=== PATIENT | male | born 1990 | race Two or more races ===

== ENCOUNTER 2023-10-30 10:32 | Outpatient (AMB) | payer OTHER, SELFPAY ==
--- NOTE | 2023-10-30 10:38 | MHC.PC.OV ---
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 The patient has been without a primary care provider for over 5-10 years. 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 Patient has a significant past medical history for obesity, schizophrenia, Major depression and generalized anxiety disorder. Has had a history of multiple psychiatric admissions for acute mental health crisis. Patient is followed by a psychiatry group at [facility] in [facility] on [facility]. He reports he has been stable on current dose of risperidone. Currently living with family keeps an eye on him. He is disabled and not able to work due to his mental illness. .. Tobacco dependency: He does admit to smoking 6 cigarettes per day and has found it very difficult to stop smoking. Denies my offers to start nicotine replacement. vaccine: needs Tdap. PFSH Family History (Updated 10/30/23 @ 11:01 by Handy Foy PA-C) Mother Hypothyroidism Maternal Grandfather Colon cancer Social History (Updated 10/30/23 @ 11:02 by Handy Foy PA-C) Housing: House Alcohol intake: never Patient Tobacco Use Status: Current everyday Tobacco user Tobacco use type: Cigarette Cigarettes Per Day: 6 e-Cigarette/Vaping Use: Never Used service: No Current occupational status: disabled Cognitive needs: No Hearing needs: No Vision needs: No Questionnaire PHQ-9 Over the last 2 weeks, how often have you been bothered by any of the following problems? 1. Little interest or pleasure in doing things: not at all 2. Feeling down, depressed, or hopeless: not at all 3. Trouble falling or staying asleep, or sleeping too much: not at all 4. Feeling tired or having little energy: not at all 5. Poor appetite or overeating: not at all 6. Feeling bad about yourself - or that you are a failure or have let yourself or your family down: not at all 7. Trouble concentrating on things, such as reading the newspaper or watching television: not at all 8. Moving or speaking so slowly that other people could have noticed. Or the opposite - being so fidgety or restless that you have been moving around a lot more than usual: not at all 9. Thoughts that you would be better off or of hurting yourself in some way: not at all Total score: 0 Depression Screening Interpretation: Negative Depression Screening Done: Yes 85248 - PHQ-9 Billing: Yes Source: Developed by Drs. Robbie Powell, Dawn Guerrero, Isak Qiu and colleagues, with an educational vaughn from [employer] (now [employer]). Thrive Questionnaire Date Thrive assessed: 10/30/23 I am a: Patient What is your living situation today?: I have a steady place to live Within the past 12 months, did the food you bought not last and you didn't have the money to get more?: Never true Within the past 12 months, did you worry whether your food would run out before you got money to buy more?: Never true Do you have trouble paying for medicines?: No Do you have trouble getting transportation to medical appointments?: No Do you have trouble paying your heating and electricity bill?: No Do you have trouble taking care of your child, family member or friend?: No Do you have trouble with day-to-day activities such as bathing, preparing meals, shopping, managing finances, etc.?: No Are you currently unemployed and looking for a job?: No Are you interested in more education?: No Please select the resources that you would like help with: None Currently or been in a relationship where the following occur: No concerns reported THRIVE Score: 0 AUDIT C Alcohol Use Questionnaire (AUDIT-C) 1. How often do you have a drink containing alcohol?: Never 3. How often do you have six or more drinks on one occasion?: Never Total Score: 0 CARIN-7 AMB Questionnaire CARIN-7 Date CARIN - 7 assessed: 10/30/23 Feeling nervous, anxious, or on edge: 0 = Not at all Not being able to stop or control worryin = Not at all Worrying too much about different things: 0 = Not at all Trouble relaxin = Not at all Being so restless that it is hard to sit still: 0 = Not at all Becoming easily annoyed or irritable: 0 = Not at all Feeling afraid as if something awful might happen: 0 = Not at all Total CARIN-7 score (0-4 normal; 5-9 mild; 10-14 moderate; 15-21 severe): 0 Source: Developed by Drs. Robbie Powell, Dawn Guerrero, Isak Qiu and colleagues, with an educational vaughn from [employer] (now [employer]). CARIN-7 Assessment Billing CARIN-7 Assessment Tool: CARIN-7 Assessment 67663 Review of Systems Const Denies headache(s) Eyes Denies loss of vision ENT Denies vertigo, Denies dizziness, Denies headache(s) and Denies sore throat Card Denies chest pain, Denies leg edema and Denies lightheadedness Resp Denies cough, Denies hemoptysis and Denies wheezing GI Denies abdominal pain, Denies melena, Denies constipation, Denies diarrhea and Denies vomiting Denies dysuria, Denies urinary frequency and Denies urinary urgency Musc Denies arthralgias, Denies joint swelling, Denies numbness and Denies tingling Neuro Denies Abnormal speech present, Denies behavioral changes, Denies vertigo, Denies dizziness, Denies headache(s), Denies loss of vision, Denies memory loss, Denies numbness and Denies tingling Psych Denies anxiety, Denies behavioral changes, Denies depression, Denies memory loss and Denies panic attacks Casey/Lymph Denies easy bleeding and Denies easy bruising Aller/Immun Denies wheezing Physical exam (Primary Care) Vital Signs: Last Vital Signs Pulse 82 10/30/23 10:39 BP 108/70 10/30/23 10:39 Pulse Ox 96 10/30/23 10:39 Oxygen Delivery Method Room Air 10/30/23 10:39 BMI result Body Mass Index 49.7 BMI Assessment/Plan discussion: High BMI High, discussed plan: lifestyle, weight reduction, dietary and physical activity Tobacco/Smoking Status: Tobacco use Status Tobacco use date assessed 10/30/23 10/30/23 10:53 Patient Tobacco Use Status Current everyday Tobacco 10/30/23 11:02 Tobacco use type Cigarette 10/30/23 11:02 e-Cigarette/Vaping Use Never Used 10/30/23 11:02 Are you ready to quit: No Tobacco cessation counseling provided: Yes Items discussed: Nicotine replacement Relapse Prevention: discussed the importance of a supportive environment, discussed negative mood or depression after quitting, weight gain after smoking is common and discussed dietary, exercise and/or lifestyle changes Number of minutes spent counselin CPT code: 96977 - 4-10 Minutes PHQ-9: PHQ-9 Score PHQ-9: Total score 0 10/30/23 11:48 Depression Screening Interpretation: Negative Thrive Assessment: Date of Thrive Assessment Date Thrive assessed 10/30/23 10/30/23 10:53 Currently or been in a relationship where the following occur: No concerns reported Const General: healthy appearing, no acute distress, alert and awake Nutritional Appearance: well nourished Orientation/consciousness: oriented to person, oriented to place and oriented to time HENMT Ears: TM's normal bilaterally General nose exam: Normal nasal mucous membranes and turbinates present Eyes Conjunctivae: conjunctivae normal Sclerae: sclerae normal Pupils: Equal, round and reactive pupils present Neck Neck: Yes no lymphadenopathy and Yes no JVD Thyroid: Thyroid normal Carotids: no bruits Resp Effort & Inspection: normal respiratory effort and not tachypneic Auscultation: no crackles, no rales, no rhonchi and no wheezes Cardio Rate: regular rate Rhythm: regular rhythm Heart sounds: no murmurs and normal S1 and S2 GI Palpation (GI): Soft to palpation, nontender, no hepatomegaly and no splenomegaly Auscultation: normal bowel sounds Skin General skin exam: no rashes or lesions noted and dry skin Neuro General: oriented to person, oriented to place and oriented to time Cranial nerves: Yes Equal, round and reactive pupils present Speech: No Abnormal speech present Gait exam (Neuro): Normal gait present Motor exam (neuro): no tremor noted Extrem Right upper extremity: full ROM Left upper extremity: full ROM Right lower extremity: full ROM; no edema Left lower extremity: full ROM; no edema Psych Mental Status: mental status grossly normal Speech and movement: Normal speech and movement present Affect: normal affect Attitude: cooperative Thought process: Normal thought process present Immunizations Boostrix Tdap 2.5 Lf unit-8 mcg-5 Lf/0.5 mL intramuscular syringe Performing Provider: Handy Foy PA-C Performing [facility] [place] Administered by: DA Munoz on 10/30/23 11:49 Dose Route Admin Location Dispensed Lot Number Expiration Date NDC Tipple Tender 0.5 mL IM Left Deltoid 0.5 mL [id number] 11/16/25 [id number] [employer] VIS Given Date VIS Provided VIS Publication Date 10/30/23 Single Vaccine 20 Eligibility Eligibility Date Funding Source Not [facility] Eligible 10/30/23 Private Assessment and Plan Assessment & Plan (1) Schizophrenia: Code(s): F20.9 - Schizophrenia, unspecified Qualifiers: Schizophrenia type: disorganized schizophrenia Qualified Code(s): F20.1 - Disorganized schizophrenia Plan: Patient continues to follow psychiatry has CHD. He continues on risperidone which has been helpful on controlling his mood . (2) Obesity: Code(s): E66.9 - Obesity, unspecified Qualifiers: Body mass index: BMI 45.0-49.9 Obesity classification: adult class 3 (BMI >= 40) Obesity type: due to excess calories Serious obesity comorbidity presence: without serious comorbidity Qualified Code(s): E66.01 - Morbid (severe) obesity due to excess calories; Z68.42 - Body mass index [BMI] 45.0-49.9, adult Plan: Patient does understand his BMI is over 40 will try to work on being more physically active and adapting to better eating habits to reduce his weight. (3) CARIN (generalized anxiety disorder): Code(s): F41.1 - Generalized anxiety disorder (4) Screening for diabetes mellitus (DM): Code(s): Z13.1 - Encounter for screening for diabetes mellitus (5) Tobacco dependence: Code(s): F17.200 - Nicotine dependence, unspecified, uncomplicated Plan: Patient does understand he needs to completely quit smoking. He has found it difficult to do so. Continues to smoke 6 cigarettes per day.. Offered nicotine replacement for patient though he declines at this time. 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 Class 3 severe obesity due to excess calories without serious comorbidity with body mass index (BMI) of 45.0 to 49.9 in adult E66.01; Z68.42 Body mass index: BMI 45.0-49.9 Obesity classification: adult class 3 (BMI >= 40) Obesity type: due to excess calories Serious obesity comorbidity presence: without serious comorbidity CARIN (generalized anxiety disorder) F41.1 Screening for diabetes mellitus (DM) Z13.1 Tobacco dependence F17.200 Additional Codes CARIN-7 Assessment Billing - CARIN-7 Assessment Tool: CARIN-7 Assessment 85894 ([id number]) Vital Signs *Quality* - CPT code: 14446 - 4-10 Minutes ([id number])
[2023-10-30 10:39] VITALS: BP 108/70; PULSE 82; O2SAT 96; BMI 49.7
== END 2023-10-30 11:17 | disposition home or self-care (01) ==
PROVIDERS: Visit Provider Physician Assistant
DX: Z23 Encounter for immunization (principal)
CPT/HCPCS: 90471; 90715; 96127; 99204

== ENCOUNTER 2024-02-29 07:05 | Inpatient (IN) | payer MEDICAID, SELFPAY ==
[2024-02-29] VITALS (10 sets, daily range): BP systolic 103–159; BP diastolic 57–106; PULSE 72–107; RESP 16–20; TEMP 36.1–37.3; O2SAT 93–99; BMI 41.3
--- NOTE | ~2024-02-29 | CT_ITS ---
EXAMINATION: CT ABDOMEN AND PELVIS WITH CONTRAST CLINICAL INFORMATION: Right buttock abscess COMPARISON: None available. TECHNIQUE: Multidetector volumetric images were obtained from the superior aspect of the liver through the pubic symphysis following administration 85 mL of Omnipaque 350 intravenous contrast. Sagittal and coronal reformatted images were obtained on the technologist's workstation. Oral contrast: No This CT examination was performed using dose optimization techniques as appropriate, variously including the following: *Automated exposure control *Adjustment of mA and/or kV according to patient size (this includes techniques or standardized protocols for targeted exams where dose is matched to indication/reason for exam; i.e. extremities or head) *Use of iterative reconstruction technique DLP: 1847 mGy-cm FINDINGS: LUNG BASES: The visualized lung bases are unremarkable. LIVER, GALLBLADDER, AND BILIARY TREE: The liver is normal in size, shape, and attenuation. No focal hepatic lesion or biliary ductal dilatation is present. The gallbladder is unremarkable with no evidence of radiopaque gallstones, gallbladder wall thickening, or obvious pericholecystic inflammatory changes. PANCREAS: Unremarkable. SPLEEN: Unremarkable. ADRENAL GLANDS: Unremarkable. KIDNEYS AND URETERS: The kidneys are normal in size, shape, and attenuation. No hydronephrosis, hydroureter, or calculi seen. No perinephric stranding. BLADDER: Unremarkable. GASTROINTESTINAL TRACT: The small and large bowel are unremarkable. The appendix is unremarkable. ABDOMINAL WALL: No significant hernia is appreciated. LYMPH NODES: Normal. VASCULAR: Unremarkable. PELVIC VISCERA: Unremarkable. OSSEOUS STRUCTURES: Unremarkable. Additional findings: There is skin thickening and inflammatory stranding of the subcutaneous fat of the inferior right buttock. There are few peripheral foci of subcutaneous air without a discrete, peripherally enhancing collection/abscess. CT/CT abdomen pelvis w IV con IMPRESSION: There is skin thickening and inflammatory stranding of the subcutaneous fat compatible with cellulitis of the inferior right buttock with a few peripheral foci of subcutaneous air which may reflect phlegmonous change. No discrete, peripherally enhancing collection/abscess. Fleischner guidelines were followed. Electronically signed by: Cedrick Bruce MD 02/29/2024 01:00 PM [facility] [place]
--- NOTE | 2024-02-29 08:27 | ED.SKABFB ---
HPI - Skin/Abscess/Foreign Bdy General Chief complaint: Skin/Abscess/Foreign Body Stated complaint: Wound on Buttocks Time Seen by Provider: 02/29/24 07:22 Source: patient, family and old records reviewed Mode of arrival: ambulatory Limitations: no limitations History of Present Illness ED Provider: AGUSTIN HPI narrative: 33 yo male with PMH of schizophrenia, anxiety no known DM or MRSA here with 2 days of R buttock abscess - mom thinks it is longer and he didn't tell them. He was very hard to get to come to the hospital. It started to drain this AM significant bloody liquid. He denies n/v/ fevers. This has never happened before. He notes it is very painful. Mom and Dad here with him. He does not give much history. MD complaint: abscess/boil Onset (ago): day(s) (2) Tetanus up to date: yes Location: buttocks Severity: severe Quality: aching Pain Consistency: intermittent Relieving factors: immobilization Exacerbating factors: palpation and movement Context: none Associated symptoms: denies other symptoms Treatments prior to arrival: bandages Related Data Home Medications ?Medication ?Instructions ?Recorded ?Confirmed benztropine 1 mg tablet 1 mg PO BID 10/30/23 10/30/23 risperidone 2 mg tablet 2 mg PO BID 10/30/23 10/30/23 Allergies Allergy/AdvReac Type Severity Reaction Status Date / Time No Known Allergies Allergy Verified 02/29/24 07:20 [No Known Allergies*] Review of Systems Review of Systems: Constitutional : No Fever, No Chills ENT/Mouth : No sore throat, No Rhinorrhea Eyes: No Eye Pain, No Swelling, No Redness Cardiovascular : No Chest Pain, No SOB Respiratory : No Cough, No Sputum Gastrointestinal : No Nausea, No Vomiting, No Diarrhea, No abdominal Pain Genitourinary : No Dysuria, No Hematuria Musculoskeletal : No joint pain, No Myalgias, No Joint Swelling Skin : pos Skin Lesions, positive skin rash Neuro : No Weakness, No Numbness, No Headache Psych : No Anxiety, No Depression Heme/Lymph: No Bruising, No Bleeding,No Lymphadenopathy Endocrine : No Polyuria, No Polydipsia All other systems reviewed and are negative PMFSH Past Medical History Attestation statement: The following information was validated with the patient. Source: old records reviewed Medical History Obesity Schizophrenia CARIN (generalized anxiety disorder) Screening for diabetes mellitus (DM) Tobacco dependence Family History Family History (Updated 10/30/23 @ 11:01 by Handy Foy PA-C) Mother Hypothyroidism Maternal Grandfather Colon cancer Social History Social History Housing: House Alcohol intake: never Patient Tobacco Use Status: Current everyday Tobacco user Tobacco use type: Cigarette Cigarettes Per Day: 6 Smoked in Last 30 Days: Yes e-Cigarette/Vaping Use: Never Used Use of substances other than those prescribed or required for medical reasons: No Advance Directives: No Advance Directives Information Provided: No Do you have a plan to hurt others: No Plan service: No Current occupational status: disabled Cognitive needs: No Hearing needs: No Vision needs: No Physical Exam Vital Signs: Vital Signs: Last Vital Signs Temp 98.6 F 02/29/24 10:37 Pulse 88 02/29/24 10:37 Resp 18 02/29/24 10:37 BP 111/66 02/29/24 10:37 Pulse Ox 98 02/29/24 09:49 O2 Del Method Room Air 02/29/24 09:49 BMI result Body Mass Index 41.3 Appearance: Alert. Oriented X3. No acute distress. Eyes: Pupils equal, round and reactive to light. ENT: Pharynx normal. Neck: Normal inspection. Neck supple. CVS: Normal heart rate and rhythm. Pulses normal. Respiratory: No respiratory distress. Breath sounds normal. Abdomen: Soft and nontender. Buttocks. almost the entirety of the R buttock is a firm hard abscess with yellow pockets noted there is erythema and edema he has marked ttp on the perirectal area R side there is a tract noted with any palpation bloody drainage comes out. Skin: Skin warm and dry. Normal skin color. Normal skin turgor. Extremities: No lower extremity edema. No calf ttp Neuro: Oriented X 3. No motor deficit. No sensory deficit. Course Course Course Narrative: clinically this is absess I am shocked that the CT scan read dose not see collection Medications Administered Discontinued Medications Generic Name Dose Route Start Last Admin Trade Name Freq PRN Reason Stop Dose Admin Piperacillin Sod/Tazobactam 50 mls @ 100 mls/hr 02/29/24 08:23 02/29/24 09:56 Sod 3.375 gm/ Sodium Chloride IV 02/29/24 08:52 100 mls/hr ONCE ONE Administration Lactated Ringer's 1,000 mls @ 999 mls/hr 02/29/24 08:23 02/29/24 09:51 Lr IV 02/29/24 09:23 999 mls/hr .Q1H1M ONE Administration Vancomycin HCl 2,000 mg in 500 mls @ 250 mls/hr 02/29/24 08:30 02/29/24 10:37 Vancomycin/Ns IV 02/29/24 10:29 250 mls/hr ONCE ONE Administration Iohexol 85 ml 02/29/24 10:23 02/29/24 10:23 Iohexol 350 Mg/Ml 100 Ml Infus..Btl IV 02/29/24 10:24 85 ml ONCE ONE Administration Morphine Sulfate 4 mg 02/29/24 08:23 02/29/24 09:53 Morphine Sulfate 4 Mg/Ml Cartridge IVPUSH 02/29/24 08:24 4 mg ONCE ONE Administration Protocol Ondansetron HCl 4 mg 02/29/24 08:23 02/29/24 09:53 Ondansetron Hcl 4 Mg/2 Ml Vial IVPUSH 02/29/24 08:24 4 mg ONCE ONE Administration Medical Decision Making Medical Decision Making MDM Narrative: 33 yo male with PMH of schizophrenia, anxiety no known DM or MRSA here with 2 days of R buttock abscess now with extensive abscess and collection of R buttock and draining bloody fluid - on arrival here he saturated a blue bedside lb. I have ordered labs, cultures, lactic acid - empiric zosyn and vancomycin. CT scan for depth may need surgery to intervene Differential Diagnosis Differential Diagnoses: The differential diagnosis associated with the presentation includes abscess, cellulitis Admission/Observation Consideration of admission/observation: Escalation of care including admission/observation considered admit for IV antibiotics and I+D Consult Healthcare Provider Management of the patient was discussed with: Shredded Filler Cigar Maker Machine (Dr. Rawls will admit) Lab Data [facility] Lab Attestation statement: I reviewed the patient's lab results. 02/29/24 09:03 02/29/24 09:03 Labs: Lab Results 02/29/24 Range/Units 09:03 WBC 14.1 H (4.8-10.8) X10*3/uL RBC 4.37 L (4.60-5.80) X10*6/uL Hgb 12.9 L (14.0-18.0) g/dl Hct 38.5 L (42.0-52.0) % MCV 88.1 (80.0-98.0) fL MCH 29.5 (27.0-33.0) pg MCHC 33.5 (31.0-36.0) g/dl RDW 12.7 (11.0-16.0) % Plt Count 313 (160-400) X10*3/uL MPV 9.8 (9.4-12.4) fL Immature Gran % (Auto) 0.5 H (0.0-0.4) % Neut % (Auto) 65.4 (45-73) % Lymph % (Auto) 21.4 (20-40) % [place] % (Auto) 10.3 (2-11) % Eos % (Auto) 2.2 (0-4) % Baso % (Auto) 0.2 (0-2) % Lymph # (Auto) 3.0 (1.2-4.9) X10*3/uL [place] # (Auto) 1.5 H (0.1-1.2) X10*3/uL Eos # (Auto) 0.3 (0.0-0.4) X10*3/uL Baso # (Auto) 0.0 (0.0-0.2) X10*3/uL Abs Immat Gran (auto) 0.07 H (0.00-0.03) X10*3/uL Absolute Neuts (auto) 9.2 H (2.0-8.3) x10*3/uL Absolute Nucleated RBC 0.000 (0.0-0.012) X10*3/uL Nucleated RBC % (auto) 0.0 (0.0-0.2) /100WBC Sodium 136 (135-145) mmol/L Potassium 3.9 (3.3-5.1) mmol/L Chloride 105 (96-108) mmol/L Carbon Dioxide 21 L (22-29) mmol/L Anion Gap 14 (12-20) BUN 11 (9-16) mg/dL Creatinine 0.76 (0.5-1.4) mg/dL Estim Creat Clear Calc 182.2 Estimated GFR > 60 Random Glucose 103 (60-115) mg/dL Lactic Acid 0.9 (0.5-2.0) mmol/L Calcium 8.6 (8.4-10.2) mg/dL Magnesium 2.2 (1.6-2.6) mg/dL Total Bilirubin 0.6 (0.0-1.0) mg/dL Direct Bilirubin 0.4 (0.0-0.5) mg/dL AST 59 H (5-37) U/L ALT 94 H (0-40) U/L Alkaline Phosphatase 100 (39-117) U/L Total Protein 7.0 (6.5-8.0) g/dL Albumin 3.4 L (3.5-5.0) g/dL Lipase 7 L (8-78) U/L Independent Interpretation I performed an independent interpretation of an: CT Scan (phlegmon) Radiology Impression Discussion of test interpretation with radiology: I have reviewed the radiologist's reading. Independent Historian Clinical information obtained from an independent historian. History obtained from or confirmed by: Parent External Record Review External record reviewed: Outpatient record Critical Care Time Critical Care Time Critical Care Time: Yes Total Critical Care Time: 35 Attestation: medical consult, admission, family discussion, IV morphine with improvement in pain I attest to this time spent taking care of the patient Discharge Plan Discharge Clinical Impression: Cellulitis Qualifiers: Site of cellulitis: buttock Qualified Code(s): L03.317 - Cellulitis of buttock Abscess of skin or subcutaneous tissue Qualifiers: Site of cutaneous abscess: buttock Qualified Code(s): L02.31 - Cutaneous abscess of buttock Patient Disposition: Admitted As Inpatient
[2024-02-29 09:08] LABS: MANUAL DIFF FLAG NO
[2024-02-29 09:10] LABS: Basophils Percent Auto 0.2 % (0-2); Eosinophils Absolute Auto 0.3 X10*3/uL (0.0-0.4); Eosinophils Percent Auto 2.2 % (0-4); Hematocrit 38.5 % (42.0-52.0); Hemoglobin 12.9 g/dl (14.0-18.0); Imm Gran Abs Auto 0.07 X10*3/uL (0.00-0.03); Imm Gran Pct Auto 0.5 % (0.0-0.4); Lymphocytes Percent Auto 21.4 % (20-40); Mean Corpuscular HGB Conc 33.5 g/dl (31.0-36.0); Mean Corpuscular Hemoglobin 29.5 pg (27.0-33.0); Mean Corpuscular Volume 88.1 fL (80.0-98.0); Mean Platelet Volume 9.8 fL (9.4-12.4); Monocytes Absolute Auto 1.5 X10*3/uL (0.1-1.2); Monocytes Percent Auto 10.3 % (2-11); Neutrophils Absolute Auto 9.2 x10*3/uL (2.0-8.3); Neutrophils Percent Auto 65.4 % (45-73); Platelet Count 313 X10*3/uL (160-400); Red Blood Count 4.37 X10*6/uL (4.60-5.80); Red Cell Distribution Width 12.7 % (11.0-16.0); White Blood Count 14.1 X10*3/uL (4.8-10.8)
--- NOTE | 2024-02-29 09:25 | PC.NURSE ---
mult attempts for IV access unsucceful. additional RN to attempt
[2024-02-29 09:28] LABS: Lactic Acid 0.9 mmol/L (0.5-2.0)
[2024-02-29 09:29] LABS: Alanine Aminotransferase 94 U/L (0-40); Albumin Level 3.4 g/dL (3.5-5.0); Alkaline Phosphatase 100 U/L (39-117); Anion Gap 14 (12-20); Aspartate Amino Transferase 59 U/L (5-37); Bilirubin Direct 0.4 mg/dL (0.0-0.5); Bilirubin Total 0.6 mg/dL (0.0-1.0); Blood Urea Nitrogen 11 mg/dL (9-16); Calcium 8.6 mg/dL (8.4-10.2); Carbon Dioxide 21 mmol/L (22-29); Chloride 105 mmol/L (96-108); Creatinine Clr Calc Pharmacy 182.2; Estimated Glomerular Filt Rate > 60; Glucose Random 103 mg/dL (60-115); Lipase 7 U/L (8-78); Magnesium 2.2 mg/dL (1.6-2.6); Potassium 3.9 mmol/L (3.3-5.1); Sodium 136 mmol/L (135-145)
[2024-02-29] MEDS: Lactated Ringers 1,000 ML 999 ML IV (09:51)
[2024-02-29] MEDS: Morphine Sulfate 4 MG/ML CARTRIDGE IVPUSH ×2 (09:53→16:10)
[2024-02-29] MEDS: ondansetron HCL 4 MG/2 ML VIAL IVPUSH (09:53)
[2024-02-29] MEDS: Piperacillin Sodium/Tazobactam 3.375 GM in 0.9 % Sodium Chloride 50 ML IV ×3 (09:56→23:46)
[2024-02-29] MEDS: iohexoL 350 MG/ML 100 ML INFUS..BTL 85 ML IV (10:23)
[2024-02-29] MEDS: vancomycin/NS 2,000 MG/500 ML PLAST..BAG 250 MG IV (10:37)
--- NOTE | 2024-02-29 14:36 | PHA.MEDREC ---
Addendum entered by Ike Garcia RPh 02/29/24 14:38: Med rec reviewed Original Note: Pharmacy Consult ? Medication Reconciliation Pharmacy has completed the medication reconciliation. Confirmed medications with Rx bottles patient brought in. The patient confirmed he took his medications last this morning.
--- NOTE | 2024-02-29 16:16 | PC.NURSE ---
RN to RN with Renee in [place]. Pt will be transfered in 20 min
--- NOTE | 2024-02-29 16:20 | P.HPGS_ITS ---
History of Present Illness History of Present Illness Date of Service: 02/29/24 Chief complaint: buttock abscess Narrative: Jayme Tracy is a 33 year old male who began to notice a buttock pain and swelling over the last few days and it got worse this morning and starting to drain. He has a past history of psych issues but has been stable recently. He comes in today with his mom. His white counts elevated there is some purulent drainage from the right buttock area near the anal opening. CT scan did not reveal a true abscess but he is draining concerning fluid. The area is very tender. He says he has never had anything like this before does not have a history of MRSA Review of Systems Review of Systems: Yes all other systems are reviewed and are negative PMFSH Past Medical History Medical History Obesity Schizophrenia CARIN (generalized anxiety disorder) Screening for diabetes mellitus (DM) Tobacco dependence Family History Family History (Updated 10/30/23 @ 11:01 by Handy Foy PA-C) Mother Hypothyroidism Maternal Grandfather Colon cancer Social History Social History Housing: House Alcohol intake: never Patient Tobacco Use Status: Current everyday Tobacco user Tobacco use type: Cigarette Cigarettes Per Day: 6 Smoked in Last 30 Days: Yes e-Cigarette/Vaping Use: Never Used Use of substances other than those prescribed or required for medical reasons: No Advance Directives: No Advance Directives Information Provided: No Do you have a plan to hurt others: No Plan service: No Current occupational status: disabled Cognitive needs: No Hearing needs: No Vision needs: No Meds Allergies Allergy/AdvReac Type Severity Reaction Status Date / Time No Known Allergies Allergy Verified 02/29/24 07:20 [No Known Allergies*] Active Medications: Current Medications Sodium Chloride (Ns) 1,000 mls @ 125 mls/hr IVCONT .Q8H DAISY Home Medications ?Medication ?Instructions ?Recorded ?Confirmed ?Last Taken ?Type benztropine 1 mg tablet 1 mg PO BID 10/30/23 02/29/24 02/29/24 History risperidone 2 mg tablet 2 mg PO BID 10/30/23 02/29/24 02/29/24 History Physical Exam Vital Signs: Vital Signs: Last Vital Signs Temp 97.8 F 02/29/24 16:08 Pulse 93 02/29/24 16:08 Resp 18 02/29/24 16:08 BP 103/57 L 02/29/24 16:08 Pulse Ox 96 02/29/24 16:08 O2 Del Method Room Air 02/29/24 16:08 BMI result Body Mass Index 41.3 Const: General: cooperative, healthy appearing and acute distress mild Resp: Auscultation: clear to auscultation bilaterally Cardio: Rate: regular rate Rhythm: regular rhythm Skin: Other: Right buttock induration thickening abscess along the medial aspect of the right buttock cheek going inferiorly towards the anal opening. There some drainage of some bloody purulent material little uncomfortable to examined Psych: Appearance: grossly normal Mental Status: mental status grossly normal Speech and movement: Normal speech and movement present Affect: normal affect Results Results Labs: Short CBC 02/29/24 Range/Units 09:03 WBC 14.1 H (4.8-10.8) X10*3/uL Hgb 12.9 L (14.0-18.0) g/dl Hct 38.5 L (42.0-52.0) % Plt Count 313 (160-400) X10*3/uL BMP 02/29/24 09:03 Sodium 136 Potassium 3.9 Chloride 105 Carbon Dioxide 21 L BUN 11 Creatinine 0.76 Calcium 8.6 Liver Function 02/29/24 Range/Units 09:03 Total Bilirubin 0.6 (0.0-1.0) mg/dL Direct Bilirubin 0.4 (0.0-0.5) mg/dL AST 59 H (5-37) U/L ALT 94 H (0-40) U/L Alkaline Phosphatase 100 (39-117) U/L Albumin 3.4 L (3.5-5.0) g/dL Abdomen CT scan report/results: report reviewed and image reviewed CT scan - pelvis: report reviewed and image reviewed Additional studies: rdering Physician: Rosey Brower DO Date of Service: 02/29/24 Procedure(s): CT abdomen pelvis w IV con Accession Number(s): [id number] cc: Rosey Brower DO; Handy Foy PA-C~ EXAMINATION: CT ABDOMEN AND PELVIS WITH CONTRAST CLINICAL INFORMATION: Right buttock abscess COMPARISON: None available. TECHNIQUE: Multidetector volumetric images were obtained from the superior aspect of the liver through the pubic symphysis following administration 85 mL of Omnipaque 350 intravenous contrast. Sagittal and coronal reformatted images were obtained on the technologist's workstation. Oral contrast: No This CT examination was performed using dose optimization techniques as appropriate, variously including the following: *Automated exposure control *Adjustment of mA and/or kV according to patient size (this includes techniques or standardized protocols for targeted exams where dose is matched to indication/reason for exam; i.e. extremities or head) *Use of iterative reconstruction technique DLP: 1847 mGy-cm FINDINGS: LUNG BASES: The visualized lung bases are unremarkable. LIVER, GALLBLADDER, AND BILIARY TREE: The liver is normal in size, shape, and attenuation. No focal hepatic lesion or biliary ductal dilatation is present. The gallbladder is unremarkable with no evidence of radiopaque gallstones, gallbladder wall thickening, or obvious pericholecystic inflammatory changes. PANCREAS: Unremarkable. SPLEEN: Unremarkable. ADRENAL GLANDS: Unremarkable. KIDNEYS AND URETERS: The kidneys are normal in size, shape, and attenuation. No hydronephrosis, hydroureter, or calculi seen. No perinephric stranding. BLADDER: Unremarkable. GASTROINTESTINAL TRACT: The small and large bowel are unremarkable. The appendix is unremarkable. ABDOMINAL WALL: No significant hernia is appreciated. LYMPH NODES: Normal. VASCULAR: Unremarkable. PELVIC VISCERA: Unremarkable. OSSEOUS STRUCTURES: Unremarkable. Additional findings: There is skin thickening and inflammatory stranding of the subcutaneous fat of the inferior right buttock. There are few peripheral foci of subcutaneous air without a discrete, peripherally enhancing collection/abscess. CT/CT abdomen pelvis w IV con IMPRESSION: There is skin thickening and inflammatory stranding of the subcutaneous fat compatible with cellulitis of the inferior right buttock with a few peripheral foci of subcutaneous air which may reflect phlegmonous change. No discrete, peripherally enhancing collection/abscess. Fleischner guidelines were followed. Electronically signed by: Cedrick Bruce MD 02/29/2024 01:00 PM [facility] [place] Dictated By: Cedrick Bruce MD Signed By: <Electronically signed by Cedrick Bruce MD in OV> 02/29/24 1300 DD/ 0825 TD/TT: 02/29/24 1020 Instant Printer Operator: APRIL Assessment and Plan (1) Abscess of skin or subcutaneous tissue: Qualifiers: Site of cutaneous abscess: buttock Qualified Code(s): L02.31 - Cutane ous abscess of buttock Status: Acute Plan Patient is 33-year-old male with right buttock abscess elevated white count te nder to palpation lot of induration draining some purulent bloody material. Plan to come to the operating room for better exam and drainage and packing of any collection noted. He has received some Zosyn and vancomycin and we will continue that. Patient has mom understand and agree with the above plan Quality Stroke Does the patient have a stroke diagnosis?: No VTE Prior VTE?: No VTE Risk Level:: Surgical - low VTE Device Contraindication: N/A - Device Ordered VTE Drug Contraindication: Treatment Not Indicated Procedures Date of Service Date of Service: 02/29/24
--- NOTE | 2024-02-29 16:33 | PC.NURSE ---
pt going to the OR at this time
--- NOTE | 2024-02-29 16:35 | P.CONAN_ITS ---
HPI - Anesthesia Eval Consult details Narrative: 33 yo M presenting for I&D of right buttock abscess. PMFSH Active Problems Active Problems: All Active Problems Abscess of skin or subcutaneous tissue (Acute) Cellulitis (Acute) Past Medical History Medical History Obesity Schizophrenia CARIN (generalized anxiety disorder) Screening for diabetes mellitus (DM) Tobacco dependence Family History Family History (Updated 10/30/23 @ 11:01 by Handy Foy PA-C) Mother Hypothyroidism Maternal Grandfather Colon cancer Family history of problems with anesthesia: No Surgical History History of Problems with Anesthesia: No (never had surgery; family hx negative for anesthetic related complications) Social History Social History Housing: House Alcohol intake: never Patient Tobacco Use Status: Current everyday Tobacco user Tobacco use type: Cigarette Cigarettes Per Day: 6 e-Cigarette/Vaping Use: Never Used service: No Current occupational status: disabled Cognitive needs: No Hearing needs: No Vision needs: No Meds Allergies Allergy/AdvReac Type Severity Reaction Status Date / Time No Known Allergies Allergy Verified 02/29/24 07:20 [No Known Allergies*] Active Medications: Current Medications Sodium Chloride (Ns) 1,000 mls @ 125 mls/hr IVCONT .Q8H DAISY Home Medications ?Medication ?Instructions ?Recorded ?Confirmed ?Last Taken ?Type benztropine 1 mg tablet 1 mg PO BID 10/30/23 02/29/24 02/29/24 History risperidone 2 mg tablet 2 mg PO BID 10/30/23 02/29/24 02/29/24 History Exam Exam Date and Time: 02/29/24 1635 Height,Weight and Vital Signs: Height 5 ft 9 in Weight 127.006 kg Last Vital Signs Temp 97.8 F 02/29/24 16:08 Pulse 93 02/29/24 16:08 Resp 18 02/29/24 16:08 BP 103/57 L 02/29/24 16:08 Pulse Ox 96 02/29/24 16:08 O2 Del Method Room Air 02/29/24 16:08 Pertinent Lab Results Pertinent Lab Results: Laboratory Tests 02/29/24 09:03 WBC 14.1 H RBC 4.37 L Hgb 12.9 L Hct 38.5 L MCV 88.1 MCH 29.5 MCHC 33.5 RDW 12.7 Plt Count 313 MPV 9.8 Immature Gran % (Auto) 0.5 H Neut % (Auto) 65.4 Lymph % (Auto) 21.4 [place] % (Auto) 10.3 Eos % (Auto) 2.2 Baso % (Auto) 0.2 Lymph # (Auto) 3.0 [place] # (Auto) 1.5 H Eos # (Auto) 0.3 Baso # (Auto) 0.0 Abs Immat Gran (auto) 0.07 H Absolute Neuts (auto) 9.2 H Absolute Nucleated RBC 0.000 Nucleated RBC % (auto) 0.0 Sodium 136 Potassium 3.9 Chloride 105 Carbon Dioxide 21 L Anion Gap 14 BUN 11 Creatinine 0.76 Estim Creat Clear Calc 182.2 Estimated GFR > 60 Random Glucose 103 Lactic Acid 0.9 Calcium 8.6 Magnesium 2.2 Total Bilirubin 0.6 Direct Bilirubin 0.4 AST 59 H ALT 94 H Alkaline Phosphatase 100 Total Protein 7.0 Albumin 3.4 L Lipase 7 L Airway Mallampati Class: II TM Dist: >3cm Neck ROM: Full Loose/Missing/Broken Teeth: Yes (several missing teeth but nothing loose per patient) Heart: S1S2 Lungs: CTAB Assessment and Plan Assessment Anesthesia Assessment: Anesthesia Plan Discussed and Chart Reviewed Final Anesthetic Review Family History of Problems with Anesthesia: No History of Problems with Anesthesia: No (never had surgery; family hx negative for anesthetic related complications) NPO: Yes ASA Class: III and Emergency Final Preanesthetic Review: No Changes in Pt Med Stat, Meds/Allgs Chart Reviewed, Consent Obtained/Reviewed and Anes Risks/Benef Reviewed Patient Risk: Intermediate Procedure Risk: Low Anesthetic Plan Anesthetic Plan: GA and Agree w/ Assess. and Plan Disposition: Standard PACU
[2024-02-29] MEDS: 0.9 % Sodium Chloride 1,000 ML 125 ML IVCONT (19:00)
[2024-02-29] MEDS: Melatonin 3 MG TABLET 6 MG PO (19:44)
[2024-02-29] MEDS: risperiDONE 2 MG TABLET PO (19:44)
[2024-02-29] MEDS: Benztropine Mesylate 1 MG TABLET PO (19:44)
[2024-02-29] MEDS: Docusate Sodium 100 MG CAPSULE PO (19:44)
[2024-03-01] MEDS: 0.9 % Sodium Chloride 1,000 ML 125 ML IVCONT (03:49)
[2024-03-01] MEDS: oxyCODONE HCl Immed Release 5 MG TABLET 10 MG PO ×3 (03:53→19:41)
[2024-03-01 04:00] VITALS: BP 115/54; PULSE 82; RESP 18; TEMP 36; O2SAT 97
[2024-03-01] MEDS: Piperacillin Sodium/Tazobactam 3.375 GM in 0.9 % Sodium Chloride 50 ML IV ×4 (06:09→23:39)
[2024-03-01 08:06] VITALS: BP 109/51; PULSE 68; RESP 12; TEMP 36.5; O2SAT 98
[2024-03-01] MEDS: Morphine Sulfate 4 MG/ML CARTRIDGE IVPUSH ×2 (08:58→18:29)
[2024-03-01] MEDS: Docusate Sodium 100 MG CAPSULE PO ×2 (08:58→19:39)
[2024-03-01] MEDS: risperiDONE 2 MG TABLET PO ×2 (08:58→19:40)
[2024-03-01] MEDS: Benztropine Mesylate 1 MG TABLET PO ×2 (08:58→19:40)
[2024-03-01] MEDS: 0.9 % Sodium Chloride Flush 3 ML SYRINGE IVFLUSH ×3 (08:58→19:41)
--- NOTE | 2024-03-01 10:32 | MHC.CM.PN ---
CM MET WITH PT AND MOTHER AT BEDSIDE PT LIVES WITH HIS MOTHER, STEP-FATHER, STEP-BROTHER AND TWO DOGS HE IS INDEPENDENT WITH CARE AND HAS NO DME OR SERVICES HE DECLINES TO COMPLETE A HCP PCP: YSABEL PHILLIPS DCP: HOME NO SERVICES VIA FAMILY TRANSPORT
[2024-03-01 12:23] VITALS: BP 119/51; PULSE 83; RESP 18; TEMP 36.6; O2SAT 97
--- NOTE | 2024-03-01 13:44 | HO.POSTANES ---
Post Anesthesia Evaluation Post Anesthesia Evaluation Date of Service: 03/01/24 Vital Signs: Vital Signs Temp Pulse Resp BP Pulse Ox O2 Del Method 03/01/24 12:23 97.8 F 83 18 119/51 L 97 Room Air 03/01/24 08:06 97.7 F 68 12 109/51 L 98 Room Air 03/01/24 04:00 96.8 F 82 18 115/54 L 97 Room Air Anesthesia: General LMA Mental Status: Awake Pain Control: Satisfactory Nausea/Vomiting: None Hydration: Adequate Anesthesia-Related Issues: No Anes. Related Issues
[2024-03-01 16:05] VITALS: BP 118/63; PULSE 94; RESP 18; TEMP 36.4; O2SAT 98
[2024-03-01 19:20] VITALS: BP 116/56; PULSE 93; RESP 14; TEMP 36.4; O2SAT 98
--- NOTE | 2024-03-01 19:37 | PM.PNGS ---
Subjective Subjective Date of Service: 03/01/24 Interval history: Patient is doing well he is having some pain but doing okay no fevers or chills. He did have a bowel movement so he was feeling a little constipated so that is much improved. Physical Exam Vital Signs: Vital Signs: Last Vital Signs Temp 97.6 F 03/01/24 19:20 Pulse 93 03/01/24 19:20 Resp 14 03/01/24 19:20 BP 116/56 L 03/01/24 19:20 Pulse Ox 98 03/01/24 19:20 O2 Del Method Room Air 03/01/24 19:20 BMI result Body Mass Index 41.3 Const: General: cooperative, healthy appearing, comfortable and no acute distress Skin: Other: Right buttock dressings were removed and the area feels a little softer little less indurated. No bleeding. Area repacked a little bit but the 2 openings looking good. Objective Data Active Medications Acetaminophen (Acetaminophen 325 Mg Tablet) 650 mg PO Q6H PRN PRN Reason: Pain, Mild (Pain Scale 1-3), fever or headache Benztropine Mesylate (Benztropine Mesylate 1 Mg Tablet) 1 mg PO BID [facility] Last Admin: 03/01/24 08:58 Dose: 1 mg Documented By: SEAN Calcium Carbonate (Calcium Carbonate 750 Mg Tab.Chew) 750 mg PO Q4H PRN PRN Reason: Heartburn Docusate Sodium (Docusate Sodium 100 Mg Capsule) 100 mg PO BID [facility] Last Admin: 03/01/24 08:58 Dose: 100 mg Documented By: SEAN Piperacillin Sod/Tazobactam (Sod 3.375 gm/ Sodium Chloride) 50 mls @ 100 mls/hr IV Q6H [facility] Last Infusion: 03/01/24 19:34 Dose: Infused Documented By: BRENNON Melatonin (Melatonin 3 Mg Tablet) 6 mg PO BEDTIME PRN PRN Reason: Insomnia Last Admin: 02/29/24 19:44 Dose: 6 mg Documented By: BRENNON Morphine Sulfate (Morphine Sulfate 4 Mg/Ml Cartridge) 4 mg IVPUSH Q3H PRN; Protocol PRN Reason: Pain, Severe (Pain Scale 7-10) Last Admin: 03/01/24 08:58 Dose: 4 mg Documented By: SEAN Naloxone HCl (Naloxone Hcl 0.4 Mg/Ml Vial) 0.04 mg IVPUSH Q5M PRN PRN Reason: Excessive sedation or RR < 8 Ondansetron HCl (Ondansetron Hcl 4 Mg/2 Ml Vial) 4 mg IVPUSH Q8H PRN PRN Reason: Nausea and Vomiting Oxycodone HCl (Oxycodone Hcl Immed Release 5 Mg Tablet) 10 mg PO Q4H PRN PRN Reason: Pain, Moderate(Pain Scale 4-6) Last Admin: 03/01/24 16:17 Dose: 10 mg Documented By: SEAN Risperidone (Risperidone 2 Mg Tablet) 2 mg PO BID [facility] Last Admin: 03/01/24 08:58 Dose: 2 mg Documented By: SEAN Sodium Chloride (0.9 % Sodium Chloride Flush 3 Ml Syringe) [facility] Last Admin: 03/01/24 16:14 Dose: 3 ml Documented By: SEAN Labs 02/29/24 09:03 02/29/24 09:03 Microbiology Microbiology Results: Microbiology 02/29/24 09:31 Blood Culture - Preliminary Blood - Venous No growth after 24 hours. 02/29/24 Unknown Gram Stain - Final Buttock Right Routine Culture - Preliminary Culture in progress. 02/29/24 09:03 Blood Culture - Preliminary Blood - Venous No growth after 24 hours. Procedures Date of Service Date of Service: 03/01/24 Progress Note: A&P Assessment and plan (1) Abscess of skin or subcutaneous tissue: Status: Acute Assessment and Plan: Patient is postop day 1 from incision and drainage of right buttock abscess improving. Dressings were removed and no bleeding a lot of purulent material still some induration of the skin moderately. At this point plan to continue with the IV Zosyn once a day dressing changes IV and p.o. pain meds Colace to prevent constipation. He understands and agrees with the above plan the be premedicated with some morphine before the dressing changes Time Spent With Patient Time: Total time managing care of this patient today ____ minutes. Quality Stroke Does the patient have a stroke diagnosis?: No VTE Prior VTE?: No VTE Risk Level:: Surgical - low VTE Device Contraindication: N/A - Device Ordered VTE Drug Contraindication: Treatment Not Indicated
[2024-03-01] MEDS: Melatonin 3 MG TABLET 6 MG PO (19:39)
--- NOTE | 2024-03-01 20:23 | W.PM.OPN ---
Operative Note Operative Note Date of Service: 03/28/24 Narrative: Preoperative diagnosis--right buttock abscess Postoperative diagnosis--right buttock abscess Procedure done--incision and drainage of right buttock abscess Surgeon--[facility] Anesthesia--general endotracheal tube anesthesia Patient is a 33-year-old male not diabetic who over the last couple of days started having some pain in the buttock area never has had issues like this before denies any trauma but it got really sore and tender and swollen and as a result he comes in here. In the emergency room his white count elevated CT scan of his abdomen and pelvis shows inflammatory changes consistent with cellulitis but no true open undrained collections. Clinically however he has an opening that is draining bloody purulent material Findings--buttock abscess Procedure-- Patient was brought to the operative room under Anesthesia guidance was intubated. He was kept on the hospital bed and then brought up into the left lateral decubitus position with the right abdomen buttock cheek up and taped to the bed so that there was exposure to the gluteal cleft and crack in anal area. There was an area that was already draining close to the anus to the another 1 lower down and these areas were opened up after prepping the patient with Betadine. Finger dissection broke down some loculations what we actually found was more just bloody material acute as well as blood clot compared to any significant purulent collections. The area was irrigated and then packed. The bleeding was such that packing was reestablished and some Surgifoam placed deep and then gauze packing to get hemostasis and control the space. The patient was extubated returned stable to recovery room specimens sent was culture. The areas that were opened up were opened up with the electrocautery in the abscess areas band 12 x 20 by 5 cm
[2024-03-01 21:02] LABS: Baso%MD 0.5 %; Eos%MD 2.5 %; Hemoglobin 12.5 g/dl (14.0-18.0); IG%MD 1.1 %; Lymph%MD 31.8 %; Mean Corpuscular HGB Conc 32.1 g/dl (31.0-36.0); Mean Corpuscular Hemoglobin 29.3 pg (27.0-33.0); Mean Corpuscular Volume 91.5 fL (80.0-98.0); Mean Platelet Volume 11.6 fL (9.4-12.4); Mono%MD 9.8 %; Neut%MD 54.3 %; Platelet Count 248 X10*3/uL (160-400); Red Blood Count 4.26 X10*6/uL (4.60-5.80); Red Cell Distribution Width 12.8 % (11.0-16.0); White Blood Count 13.2 X10*3/uL (4.8-10.8)
[2024-03-01 21:50] LABS: Band Neutrophils Percent 2 % (3-5); Eosinophils Absolute Manual 0.1 X10*3/uL (0.0-0.4); Eosinophils Percent Manual 1 % (0-4); Lymphocytes Percent Manual 38 % (20-40); Monocytes Absolute Manual 0.7 X10*3/uL (0.1-1.2); Monocytes Percent Manual 5 % (2-11); Neutrophils Absolute Manual 7.4 X10*3/uL (2.0-8.3); Neutrophils Percent Manual 54 % (45-73)
[2024-03-01 21:53] LABS: Platelet Estimate NORMAL (NORMAL); Platelet Morphology Comment NORMAL; RBC Morphology NORMAL
[2024-03-01 23:41] VITALS: BP 103/55; PULSE 81; RESP 18; TEMP 36.3; O2SAT 97
[2024-03-02 03:19] VITALS: BP 110/51; PULSE 75; RESP 16; TEMP 36.1; O2SAT 97
[2024-03-02] MEDS: Piperacillin Sodium/Tazobactam 3.375 GM in 0.9 % Sodium Chloride 50 ML IV ×3 (06:01→18:18)
[2024-03-02] MEDS: 0.9 % Sodium Chloride Flush 3 ML SYRINGE IVFLUSH ×2 (07:38→16:50)
[2024-03-02] MEDS: Docusate Sodium 100 MG CAPSULE PO ×2 (07:39→21:23)
[2024-03-02] MEDS: Benztropine Mesylate 1 MG TABLET PO ×2 (07:39→21:22)
[2024-03-02] MEDS: risperiDONE 2 MG TABLET PO ×2 (07:39→21:22)
[2024-03-02] MEDS: oxyCODONE HCl Immed Release 5 MG TABLET 10 MG PO ×4 (07:39→21:28)
[2024-03-02 07:59] LABS: Baso%MD 0.5 %; Eos%MD 3.3 %; Hematocrit 34.2 % (42.0-52.0); Hemoglobin 10.9 g/dl (14.0-18.0); IG%MD 1.3 %; Mean Corpuscular HGB Conc 31.9 g/dl (31.0-36.0); Mean Corpuscular Hemoglobin 29.1 pg (27.0-33.0); Mean Corpuscular Volume 91.2 fL (80.0-98.0); Mean Platelet Volume 10.1 fL (9.4-12.4); Mono%MD 8.9 %; Platelet Count 317 X10*3/uL (160-400); Red Blood Count 3.75 X10*6/uL (4.60-5.80); Red Cell Distribution Width 12.8 % (11.0-16.0); White Blood Count 11.1 X10*3/uL (4.8-10.8)
[2024-03-02 08:07] VITALS: BP 119/57; PULSE 87; RESP 18; TEMP 37; O2SAT 99
[2024-03-02 08:40] LABS: Band Neutrophils Percent 0 % (3-5); Eosinophils Absolute Manual 0.6 X10*3/uL (0.0-0.4); Eosinophils Percent Manual 5 % (0-4); Lymphocytes Absolute Manual 3.8 X10*3/uL (1.2-4.9); Lymphocytes Percent Manual 34 % (20-40); Monocytes Absolute Manual 1.1 X10*3/uL (0.1-1.2); Monocytes Percent Manual 10 % (2-11); Neutrophils Absolute Manual 5.7 X10*3/uL (2.0-8.3); Neutrophils Percent Manual 51 % (45-73)
[2024-03-02 08:41] LABS: Hypochromasia 1+ (5-14) /OIF; Platelet Estimate NORMAL (NORMAL); Platelet Morphology Comment NORMAL; RBC Morphology NOTED
--- NOTE | 2024-03-02 11:27 | P.PNGS_ITS ---
Subjective Subjective Date of Service: 03/02/24 Interval history: PATIENT IS FEELING WELL no complaints the area is a little sore after the dressing changes Physical Exam 2 Vital Signs: Vital Signs: Last Vital Signs Temp 98.6 F 03/02/24 08:07 Pulse 87 03/02/24 08:07 Resp 18 03/02/24 08:07 BP 119/57 L 03/02/24 08:07 Pulse Ox 99 03/02/24 08:07 O2 Del Method Room Air 03/02/24 08:07 BMI result Body Mass Index 41.3 Skin: Other: There is definitely less induration around the 2 openings but more so still at the inferior opening and going towards the perineum. Here there is a little more indurated tissue but improved. There was bleeding from the opening. Objective Data Active Medications Acetaminophen (Acetaminophen 325 Mg Tablet) 650 mg PO Q6H PRN PRN Reason: Pain, Mild (Pain Scale 1-3), fever or headache Benztropine Mesylate (Benztropine Mesylate 1 Mg Tablet) 1 mg PO BID [facility] Last Admin: 03/02/24 07:39 Dose: 1 mg Documented By: SEAN Calcium Carbonate (Calcium Carbonate 750 Mg Tab.Chew) 750 mg PO Q4H PRN PRN Reason: Heartburn Docusate Sodium (Docusate Sodium 100 Mg Capsule) 100 mg PO BID [facility] Last Admin: 03/02/24 07:39 Dose: 100 mg Documented By: SEAN Piperacillin Sod/Tazobactam (Sod 3.375 gm/ Sodium Chloride) 50 mls @ 100 mls/hr IV Q6H [facility] Last Infusion: 03/02/24 06:34 Dose: Infused Documented By: BRENNON Melatonin (Melatonin 3 Mg Tablet) 6 mg PO BEDTIME PRN PRN Reason: Insomnia Last Admin: 03/01/24 19:39 Dose: 6 mg Documented By: BRENNON Morphine Sulfate (Morphine Sulfate 4 Mg/Ml Cartridge) 4 mg IVPUSH Q3H PRN; Protocol PRN Reason: Pain, Severe (Pain Scale 7-10) Last Admin: 03/01/24 08:58 Dose: 4 mg Documented By: SEAN Naloxone HCl (Naloxone Hcl 0.4 Mg/Ml Vial) 0.04 mg IVPUSH Q5M PRN PRN Reason: Excessive sedation or RR < 8 Ondansetron HCl (Ondansetron Hcl 4 Mg/2 Ml Vial) 4 mg IVPUSH Q8H PRN PRN Reason: Nausea and Vomiting Oxycodone HCl (Oxycodone Hcl Immed Release 5 Mg Tablet) 10 mg PO Q4H PRN PRN Reason: Pain, Moderate(Pain Scale 4-6) Last Admin: 03/02/24 07:39 Dose: 10 mg Documented By: SEAN Risperidone (Risperidone 2 Mg Tablet) 2 mg PO BID [facility] Last Admin: 03/02/24 07:39 Dose: 2 mg Documented By: SEAN Sodium Chloride (0.9 % Sodium Chloride Flush 3 Ml Syringe) 3 ml IVFLUSH QSHIFT [facility] Last Admin: 03/02/24 07:38 Dose: 3 ml Documented By: SEAN Labs 03/02/24 05:57 02/29/24 09:03 Labs: Laboratory Results - last 24 hr 03/01/24 03/02/24 20:39 05:57 MCV 91.5 91.2 MCH 29.3 29.1 MCHC 32.1 31.9 RDW 12.8 12.8 Plt Count 248 317 D MPV 11.6 10.1 Absolute Nucleated RBC 0.000 0.000 Nucleated RBC % (auto) 0.0 0.0 Neutrophils % (Manual) 54 51 Band Neutrophils % 2 L 0 L Lymphocytes % (Manual) 38 34 Monocytes % (Manual) 5 10 Eosinophils % (Manual) 1 5 H Abs Neuts (Manual) 7.4 5.7 Lymphocytes # (Manual) 5.0 H 3.8 Monocytes # (Manual) 0.7 1.1 Eosinophils # (Manual) 0.1 0.6 H Platelet Estimate NORMAL NORMAL Plt Morphology Comment NORMAL NORMAL RBC Morphology NORMAL NOTED Hypochromasia 1+ (5-14) Microbiology Microbiology Results: Microbiology 02/29/24 09:03 Blood Culture - Preliminary Blood - Venous No growth after 48 hours. 02/29/24 09:31 Blood Culture - Preliminary Blood - Venous No growth after 24 hours. 02/29/24 Unknown Gram Stain - Final Buttock Right Routine Culture - Preliminary Culture in progress. Procedures Date of Service Date of Service: 03/02/24 Progress Note: A&P Assessment and plan (1) Abscess of skin or subcutaneous tissue: Status: Acute Assessment and Plan: 33-year-old male with abscess of the buttock area improving after I and D and packing and draining and IV Zosyn. Plan to follow up on cultures continue with the dressing changes once a day with premedication. Time Spent With Patient Time: Total time managing care of this patient today ____ minutes. Quality Stroke Does the patient have a stroke diagnosis?: No VTE Prior VTE?: No VTE Risk Level:: Surgical - low VTE Device Contraindication: N/A - Device Ordered VTE Drug Contraindication: Treatment Not Indicated
[2024-03-02 12:24] VITALS: BP 101/52; PULSE 70; RESP 18; TEMP 36.6; O2SAT 98
[2024-03-02] MEDS: Morphine Sulfate 4 MG/ML CARTRIDGE IVPUSH (15:26)
[2024-03-02 15:47] VITALS: BP 103/51; PULSE 80; RESP 18; TEMP 36.1; O2SAT 97
[2024-03-02 19:43] VITALS: BP 129/58; PULSE 75; RESP 18; TEMP 37; O2SAT 97
[2024-03-02] MEDS: Melatonin 3 MG TABLET 6 MG PO (21:28)
[2024-03-02 23:58] VITALS: BP 106/62; PULSE 73; RESP 16; TEMP 36.6; O2SAT 98
[2024-03-03] MEDS: Piperacillin Sodium/Tazobactam 3.375 GM in 0.9 % Sodium Chloride 50 ML IV ×4 (01:20→18:15)
[2024-03-03 03:23] VITALS: BP 104/60; PULSE 71; RESP 16; TEMP 36.8; O2SAT 99
[2024-03-03 08:03] VITALS: BP 105/51; PULSE 74; RESP 12; TEMP 36.4; O2SAT 97
[2024-03-03] MEDS: risperiDONE 2 MG TABLET PO ×2 (09:01→21:53)
[2024-03-03] MEDS: Benztropine Mesylate 1 MG TABLET PO ×2 (09:01→21:54)
[2024-03-03] MEDS: Docusate Sodium 100 MG CAPSULE PO ×2 (09:01→21:54)
[2024-03-03] MEDS: Morphine Sulfate 4 MG/ML CARTRIDGE IVPUSH ×2 (09:02→17:03)
--- NOTE | 2024-03-03 09:18 | P.PNGS_ITS ---
Subjective Subjective Date of Service: 03/03/24 <Tracee Forman PA-C - Last Filed: 03/03/24 09:21> 03/03/24 <Isac Moss MD - Last Filed: 03/03/24 11:37> Interval history: Reports mild pain. Has been OOB to brush teeth. <Tracee Forman PA-C - Last Filed: 03/03/24 09:21> Physical Exam 2 Vital Signs: Vital Signs: Last Vital Signs Temp 97.5 F 03/03/24 08:03 Pulse 74 03/03/24 08:03 Resp 12 03/03/24 08:03 BP 105/51 L 03/03/24 08:03 Pulse Ox 97 03/03/24 08:03 O2 Del Method Room Air 03/03/24 08:03 BMI result Body Mass Index 41.3 <JANIYA Howard Last Filed: 03/03/24 09:21> Const: General: comfortable, no acute distress and alert <Tracee Forman PA-C - Last Filed: 03/03/24 09:21> Orientation/consciousness: patient oriented x3 <Tracee Forman PA-C - Last Filed: 03/03/24 09:21> Resp: Effort & Inspection: normal respiratory effort <Tracee Forman PA-C - Last Filed: 03/03/24 09:21> Skin: Other: right buttock- two openings of mid buttock, packign removed from more inferior/lateral, continues with persistent induration surrounding, no purulent drainage <Tracee Forman PA-C - Last Filed: 03/03/24 09:21> Neuro: General: patient oriented x3 and moves all extremities <JANIYA Howard Last Filed: 03/03/24 09:21> Objective Data Active Medications Acetaminophen (Acetaminophen 325 Mg Tablet) 650 mg PO Q6H PRN PRN Reason: Pain, Mild (Pain Scale 1-3), fever or headache Benztropine Mesylate (Benztropine Mesylate 1 Mg Tablet) 1 mg PO BID [facility] Last Admin: 03/03/24 09:01 Dose: 1 mg Documented By: MADALYN Calcium Carbonate (Calcium Carbonate 750 Mg Tab.Chew) 750 mg PO Q4H PRN PRN Reason: Heartburn Docusate Sodium (Docusate Sodium 100 Mg Capsule) 100 mg PO BID [facility] Last Admin: 03/03/24 09:01 Dose: 100 mg Documented By: MADALYN Piperacillin Sod/Tazobactam (Sod 3.375 gm/ Sodium Chloride) 50 mls @ 100 mls/hr IV Q6H [facility] Last Infusion: 03/03/24 07:27 Dose: Infused Documented By: MADALYN Melatonin (Melatonin 3 Mg Tablet) 6 mg PO BEDTIME PRN PRN Reason: Insomnia Last Admin: 03/02/24 21:28 Dose: 6 mg Documented By: LEIGHANN Morphine Sulfate (Morphine Sulfate 4 Mg/Ml Cartridge) 4 mg IVPUSH Q3H PRN; Protocol PRN Reason: Pain, Severe (Pain Scale 7-10) Last Admin: 03/03/24 09:02 Dose: 4 mg Documented By: MADALYN Naloxone HCl (Naloxone Hcl 0.4 Mg/Ml Vial) 0.04 mg IVPUSH Q5M PRN PRN Reason: Excessive sedation or RR < 8 Ondansetron HCl (Ondansetron Hcl 4 Mg/2 Ml Vial) 4 mg IVPUSH Q8H PRN PRN Reason: Nausea and Vomiting Oxycodone HCl (Oxycodone Hcl Immed Release 5 Mg Tablet) 10 mg PO Q4H PRN PRN Reason: Pain, Moderate(Pain Scale 4-6) Last Admin: 03/02/24 21:28 Dose: 10 mg Documented By: LEIGHANN Risperidone (Risperidone 2 Mg Tablet) 2 mg PO BID [facility] Last Admin: 03/03/24 09:01 Dose: 2 mg Documented By: MADALYN Sodium Chloride (0.9 % Sodium Chloride Flush 3 Ml Syringe) 3 ml IVFLUSH QSHIFT [facility] Last Admin: 03/03/24 09:10 Dose: Not Given Documented By: MADALYN Non-Admin Reason: Previously Administered <Tracee Forman PA-C - Last Filed: 03/03/24 09:21> Labs CBC & Chem 7: 03/02/24 05:57 02/29/24 09:03 <Tracee Forman PA-C - Last Filed: 03/03/24 09:21> Microbiology Microbiology Results: Microbiology 02/29/24 Unknown Gram Stain - Final Buttock Right Routine Culture - Final Escherichia coli 02/29/24 09:31 Blood Culture - Preliminary Blood - Venous No growth after 48 hours. 02/29/24 09:03 Blood Culture - Preliminary Blood - Venous No growth after 48 hours. <Tracee Forman PA-C - Last Filed: 03/03/24 09:21> Procedures Date of Service Date of Service: 03/03/24 <Tracee Forman PA-C - Last Filed: 03/03/24 09:21> 03/03/24 <Isac Moss MD - Last Filed: 03/03/24 11:37> Progress Note: A&P Assessment and plan (1) Abscess of skin or subcutaneous tissue: Status: Acute <Tracee Forman PA-C - Last Filed: 03/03/24 09:21> Assessment and Plan: Still with residual induration Warm soaks IV antibiotics We examined tomorrow Wound care Seen and examined independently <Isac Moss MD - Last Filed: 03/03/24 11:37> Assessment and Plan: S/p I&D of right buttock- doing well , slowly improving, no purulent drainage but has persistent induration surrounding I&D sites. Encouraged warm shower, sitz baths to help with induration. Cont IV zosyn. Cultures remain pending. <Tracee Forman PA-C - Last Filed: 03/03/24 09:21> Time Spent With Patient Time: Total time managing care of this patient today ____ minutes. <Tracee Forman PA-C - Last Filed: 03/03/24 09:21> Quality Stroke Does the patient have a stroke diagnosis?: No <JANIYA Howard Last Filed: 03/03/24 09:21> VTE Prior VTE?: No <Tracee Forman PA-C - Last Filed: 03/03/24 09:21> VTE Risk Level:: Surgical - low <JANIYA Hoawrd Last Filed: 03/03/24 09:21> VTE Device Contraindication: N/A - Device Ordered <Tracee Forman PA-C - Last Filed: 03/03/24 09:21> VTE Drug Contraindication: Treatment Not Indicated <Tracee Forman PA-C - Last Filed: 03/03/24 09:21>
[2024-03-03 12:21] VITALS: BP 105/51; PULSE 74; RESP 18; TEMP 36.4; O2SAT 98
[2024-03-03 15:52] VITALS: BP 113/57; PULSE 85; RESP 18; TEMP 36.2; O2SAT 98
[2024-03-03] MEDS: 0.9 % Sodium Chloride Flush 3 ML SYRINGE IVFLUSH (17:09)
--- NOTE | 2024-03-03 17:11 | HO.WOUND ---
Wound Consult: Initial 33yr old? Male admitted to [facility] on 02/29/24 - See progress notes and H&P for detailed history.? Wound consult requested by family for Right buttock abscess site s/p OR debridement.? Arrival to bedside with patients mother who is an employee of [facility], Patient agreeable to assessment and agreeable to his mothers presence. Right buttock assessed for open draining wound - mild odor noted - serosang drainage noted - no purulence noted. There is concern for stool contamination to the intergluteal site - discusses benefits of sitz bath with patient and mother. Patient attempted but was not able to sit for length but was able to perform briefly patient is agreeable to use in small increments. Patient reports soft stool not loose and not hard. Right buttock and Intergluteal site Etiology: Abscess ?s/p I&D Measurements:1.5cm x 1.5cm x depth of 10cm appears to communicate at 11 o'clock to superior site with in the gluteal fold. ? Wound Bed: marbled wound bed with yellow slough and red moist tissue Drainage / Odor: mild odor noted - no purulence noted, serosang drainage noted on dressing Edges: ? unattached Julianne wound: Firm Induration and Warmth noted - induration appears to be resolving Pain: tenderness note to buttock area - pain noted to area with in gluteal fold Goals of Treatment: ? Sitz bath and defer to Surgery team for topical orders. Recommendations: 1. Right buttock - Routine Daily showers. Use Sitz bath 3-4 times daily. Defer to General Surgery. Re-consult wound care Nurse for wound deterioration or wound changes.
[2024-03-03 19:38] VITALS: BP 110/53; PULSE 83; RESP 20; TEMP 37.5; O2SAT 98
[2024-03-03] MEDS: oxyCODONE HCl Immed Release 5 MG TABLET 10 MG PO (21:54)
[2024-03-03 23:39] VITALS: BP 122/56; PULSE 93; RESP 16; TEMP 36.3; O2SAT 97
[2024-03-04] MEDS: Piperacillin Sodium/Tazobactam 3.375 GM in 0.9 % Sodium Chloride 50 ML IV ×2 (00:41→06:28)
[2024-03-04 03:57] VITALS: BP 104/55; PULSE 74; RESP 18; TEMP 36.4; O2SAT 96
[2024-03-04 07:32] VITALS: BP 98/46; PULSE 70; RESP 20; TEMP 36.7; O2SAT 95
--- NOTE | 2024-03-04 08:05 | P.PNGS_ITS ---
Subjective Subjective Date of Service: 03/04/24 Interval history: Denies complaints Denies severe pain on the right buttock Physical Exam 2 Vital Signs: Vital Signs: Last Vital Signs Temp 98.0 F 03/04/24 07:32 Pulse 70 03/04/24 07:32 Resp 20 03/04/24 07:32 BP 98/46 L 03/04/24 07:32 Pulse Ox 95 03/04/24 07:32 O2 Del Method Room Air 03/04/24 07:32 BMI result Body Mass Index 41.3 Const: General: comfortable and no acute distress Resp: Effort & Inspection: normal respiratory effort Back/Spine/Pelvis: Other: I&D site on the right buttock much less indurated, scanty drainage, no fluctuance Objective Data Active Medications Acetaminophen (Acetaminophen 325 Mg Tablet) 650 mg PO Q6H PRN PRN Reason: Pain, Mild (Pain Scale 1-3), fever or headache Benztropine Mesylate (Benztropine Mesylate 1 Mg Tablet) 1 mg PO BID [facility] Last Admin: 03/03/24 21:54 Dose: 1 mg Documented By: LEIGHANN Calcium Carbonate (Calcium Carbonate 750 Mg Tab.Chew) 750 mg PO Q4H PRN PRN Reason: Heartburn Docusate Sodium (Docusate Sodium 100 Mg Capsule) 100 mg PO BID [facility] Last Admin: 03/03/24 21:54 Dose: 100 mg Documented By: LEIGHANN Piperacillin Sod/Tazobactam (Sod 3.375 gm/ Sodium Chloride) 50 mls @ 100 mls/hr IV Q6H [facility] Last Infusion: 03/04/24 07:05 Dose: Infused Documented By: MADALYN Melatonin (Melatonin 3 Mg Tablet) 6 mg PO BEDTIME PRN PRN Reason: Insomnia Last Admin: 03/02/24 21:28 Dose: 6 mg Documented By: LEIGHANN Morphine Sulfate (Morphine Sulfate 4 Mg/Ml Cartridge) 4 mg IVPUSH Q3H PRN; Protocol PRN Reason: Pain, Severe (Pain Scale 7-10) Last Admin: 03/03/24 17:03 Dose: 4 mg Documented By: MADALYN Naloxone HCl (Naloxone Hcl 0.4 Mg/Ml Vial) 0.04 mg IVPUSH Q5M PRN PRN Reason: Excessive sedation or RR < 8 Ondansetron HCl (Ondansetron Hcl 4 Mg/2 Ml Vial) 4 mg IVPUSH Q8H PRN PRN Reason: Nausea and Vomiting Oxycodone HCl (Oxycodone Hcl Immed Release 5 Mg Tablet) 10 mg PO Q4H PRN PRN Reason: Pain, Moderate(Pain Scale 4-6) Last Admin: 03/03/24 21:54 Dose: 10 mg Documented By: LEIGHANN Risperidone (Risperidone 2 Mg Tablet) 2 mg PO BID [facility] Last Admin: 03/03/24 21:53 Dose: 2 mg Documented By: LEIGHANN Sodium Chloride (0.9 % Sodium Chloride Flush 3 Ml Syringe) 3 ml IVFLUSH QSHIFT [facility] Last Admin: 03/04/24 00:22 Dose: Not Given Documented By: LEIGHANN Non-Admin Reason: Previously Administered Labs 03/02/24 05:57 02/29/24 09:03 Microbiology Microbiology Results: Microbiology 02/29/24 Unknown Gram Stain - Final Buttock Right Routine Culture - Final Escherichia coli Procedures Date of Service Date of Service: 03/04/24 Progress Note: A&P Assessment and plan (1) Abscess of skin or subcutaneous tissue: Status: Acute Assessment and Plan: Abscess site much less indurated of her I and D Dressings changed Continue wound care Antibiotics Warm compress Seems ready to be discharged today or tomorrow if with no other issues Time Spent With Patient Time: Total time managing care of this patient today ____ minutes. Quality Stroke Does the patient have a stroke diagnosis?: No VTE Prior VTE?: No VTE Risk Level:: Surgical - low VTE Device Contraindication: N/A - Device Ordered VTE Drug Contraindication: Treatment Not Indicated
[2024-03-04] MEDS: Docusate Sodium 100 MG CAPSULE PO (08:43)
[2024-03-04] MEDS: risperiDONE 2 MG TABLET PO (08:43)
[2024-03-04] MEDS: Benztropine Mesylate 1 MG TABLET PO (08:43)
[2024-03-04] MEDS: oxyCODONE HCl Immed Release 5 MG TABLET 10 MG PO (08:43)
[2024-03-04] MEDS: 0.9 % Sodium Chloride Flush 3 ML SYRINGE IVFLUSH (08:45)
--- NOTE | 2024-03-04 09:47 | MHC.CM.PN ---
Patient medically cleared for dc home self care. Reports his mom can perform dressing changes. RN to teach. Patient will coordinate transportation home. 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
--- NOTE | 2024-03-04 10:26 | PM.DS ---
DS: Providers Provider Date of Service: 03/04/24 Date of admission: 02/29/24 13:55 Date of discharge: 03/04/24 Primary care physician: Handy Foy PA-C Attending physician on admission: Ivana Rawls Attending physician on discharge: Isac Moss DS: Diagnosis Discharge Diagnosis (1) Abscess of skin or subcutaneous tissue: Status: Acute DS: Summary Hospital Course Hospital Course: HPI AT ADMISSION: Jayme Tracy is a 33 year old male who began to notice a buttock pain and swelling over the last few days and it got worse this morning and starting to drain. He has a past history of psych issues but has been stable recently. He comes in today with his mom. His white counts elevated there is some purulent drainage from the right buttock area near the anal opening. CT scan did not reveal a true abscess but he is draining concerning fluid. The area is very tender. He says he has never had anything like this before does not have a history of MRSA HOSPITAL COURSE: He was admitted to the surgical service for further treatment of the right buttock abscess. It was recommended to proceed with EUA and I&D of any collection noted. Patient and mother agreed with plan and he was added onto the OR schedule for that day. He was started on IVF, IV zosyn. On 01/29/24, incision and drainage of right buttock abscess was performed by Dr. Rawls without complication. He tolerated the procedure well. He remained inpatient for 4 days post op for IV abx. On the day of discharge, the I&D sites remained open and draining. The surrounding cellulitic changes were much improved. He was hemodynamically stable. He was discharged to home on 03/04/24 on an oral course of augmentin with f/u in the office in 1 week for wound check. He and mother were instructed on dry dressing to I&D sites while they remain open and draining. Status at Discharge Functional status at discharge: independent ambulation Overall status at discharge: patient is progressing back to baseline Time Attestation Discharge Coordination Time (in mins): 30 Quality: Safe Use of Opioids Does Pt have an Active Cancer Diagnosis on the Problem List?: No Quality: Stroke Does the patient have a stroke diagnosis?: No Physical Exam Vital Signs: Vital Signs: Last Vital Signs Temp 98.0 F 03/04/24 07:32 Pulse 70 03/04/24 07:32 Resp 20 03/04/24 07:32 BP 98/46 L 03/04/24 07:32 Pulse Ox 95 03/04/24 07:32 O2 Del Method Room Air 03/04/24 07:32 BMI result Body Mass Index 41.3 Const: General: comfortable, no acute distress and alert Orientation/consciousness: patient oriented x3 Resp: Effort & Inspection: normal respiratory effort Skin: Other: right buttock I&D sites open and draining nonpurulent output, mild residual induration and edema Neuro: General: patient oriented x3 and moves all extremities DS: Data Data Completed and Pending Labs on day of discharge: Preliminary micro results at discharge 02/29/24 09:31 Blood Culture - Preliminary Blood - Venous No growth after 48 hours. 02/29/24 09:03 Blood Culture - Preliminary Blood - Venous No growth after 48 hours. Discharge Plan Discharge Anticipated Discharge Date/Time: 03/04/24 09:22 Patient Disposition: Home, Self-Care Discharge Diagnosis: right buttock abscess Referrals: Handy Foy PA-C [Primary Care Provider] - 1 Week Isac Moss MD [Physician] - 1 Week Discharge Medications: New amoxicillin-pot clavulanate 875-125 mg tablet 1 tab PO BID Qty: 10 0RF oxycodone 5 mg tablet 5 mg PO Q4H PRN (Reason: pain (scale score 7-10)) Qty: 14 0RF Rx Instructions: Partial Fill upon patient request. Continued benztropine 1 mg tablet 1 mg PO BID risperidone 2 mg tablet 2 mg PO BID Discharge Orders: Discharge Order (Routine); Ordered 03/04/24 Ordered By: Tracee Forman Diet: Advance to usual diet Activity on Discharge: As tolerated Stand Alone Forms: Patient Portal Discharge page Print Language: Bulgarian Activity Restrictions/Additional Instructions: Dry dressing to I&D area while it remains open and draining. Ok to shower. Hot sitz baths or warm compressed to area three times a day and after bowel movements. Take Tylenol Extra-strength 1-2 tabs every 6 hours as needed. Can take Oxycodone every 4-6 hours as needed for pain. Colace 100 mg every day as needed for constipation. Follow up in office in a week. ([phone]) Call Your Doctor Or Return to ED If: ? ? -Your temperature exceeds 101.5? F? ? ? -You experience excessive pain or swelling ? ? -You have an unexpected reaction to medication ? ? -You experience continued vomiting/nausea Care Plan Goals: Return to baseline health and resume normal activities. Wound healing. Health Concerns: right buttock abscess Plan of Treatment: s/p I&D IV transitioned to PO abx sitz baths f/u in office with Dr. Moss Assessment: Improved Discharge Date/Time: 03/04/24 15:41
--- NOTE | 2024-03-04 11:16 | HO.WOUND ---
Wound Consult: Follow up 33yr old? Male admitted to [facility] on 02/29/24 - See progress notes and H&P for detailed history.? Wound consult requested by family for Right buttock abscess site s/p OR debridement.? Arrival to bedside with patients mother who is an employee of [facility], Patient agreeable to assessment and agreeable to his mothers presence. Patient showerd and performed warm wash with water to buttock and intergluteal site, after completed this typewriter mechanic to bedside to assess. Right buttock appears improved since yesterday remains with induration but less swelling noted and less erythema noted. The patient reports pain to the intergluteal site only at this time - the wound bed sit very close to anal sphyincter. The patient is again noted from loose stool in the area. Unclear if this leaking is new advised pt and mother to continue assessment and if not resolved in 1 week to report to MD at follow up. Both sites are improving, red moist tissue with moist yellos white slough noted. no odor no purulence noted. Patient reports pain with sitz bath patient was educated on the benefits of the sitz bath to the wound cleansing and over all healing - both demonstrate understanding. The patients mother was advised to purchase a peribottle as they are not available here at [facility] and this may increase compliance. Right buttock and Intergluteal site Etiology: Abscess ?s/p I&D Wound Bed: marbled wound bed with yellow slough and red moist tissue Drainage / Odor: No odor noted today - no purulence noted, serosang drainage noted on dressing Edges: ? unattached Julianne wound: less Induration and warmth noted - significant decrease in swelling noted Pain: tenderness note to buttock area - pain noted to area with in gluteal fold Goals of Treatment: ? Sitz bath and Triad to intergluteal wound and perineal area given stool presence this will allow for autolytic debridement and moist wound healing while protecting from moisture and stool. Dressing applied to inferior buttock site to absorb drainage and keep covered. Recommendations: 1. Right buttock - Routine Daily showers. Use Sitz bath 3-4 times daily. Defer to General Surgery. Re-consult wound care Nurse for wound deterioration or wound changes.
== END 2024-03-04 15:41 | disposition home or self-care (01) | DRG 383 ==
LOC: HO.ED 13:50 → HO.EDOVER 13:59 → HO.S3 15:12
PROVIDERS: Admitting Provider Surgery; Emergency Provider Emergency Medicine; PCP Physician Assistant; Visit Provider Surgery
PROC: (CPT 46040; principal; 2024-02-29 16:00)
DX: L02.31 Cutaneous abscess of buttock (principal); F25.9 Schizoaffective disorder, unspecified; L03.317 Cellulitis of buttock; F17.210 Nicotine dependence, cigarettes, uncomplicated; Z71.6 Tobacco abuse counseling; Z79.899 Other long term (current) drug therapy
CPT/HCPCS: 36415; 74177; 80048; 80076; 83605; 83690; 83735; 85007; 85025; 85027; 87040; 87070; 87077; 87186; 87205; 99284; J0131; J1100; J2003; J2250; J2270; J2405; J2543; J2704; J3010; J3370; J7120; Q9967

== ENCOUNTER → 2024-02-29 13:55 | Outpatient (BNV) | payer MEDICAID, SELFPAY | PROVIDERS: Admitting Provider Surgery; Emergency Provider Emergency Medicine; PCP Physician Assistant; Visit Provider Surgery | DX: L02.31 Cutaneous abscess of buttock (principal) | CPT/HCPCS: 10061; 99024; 99222 ==

== ENCOUNTER 2024-03-11 12:53 | Outpatient (AMB) | payer MEDICAID, SELFPAY ==
--- NOTE | 2024-03-11 13:04 | A.OFFPC_ITS ---
Vital Signs 3 03/11/24 13:11 Height 5 ft 9 in Weight 331 lb 2 oz BMI 48.9 BP 114/68 Blood Pressure Location Rt brachial Position Semi Main's Pulse 122 H Pulse Source Pulse Oximeter Pulse Oximetry (%) 98 Oxygen Delivery Method Room Air Int[place] [facility] [place] Tannery Gummer Required: No Accompanied by: Mother Allergies No Known Allergies [No Known Allergies*] Allergy (Verified 03/11/24 13:31) Medication List - Last Reconciled 03/11/24 by Handy Foy PA-C amoxicillin-pot clavulanate 875-125 mg 1 tab PO BID benztropine 1 mg PO BID oxycodone 5 mg PO Q4H PRN risperidone 2 mg PO BID Tobacco use date assessed: 10/30/23 Dental Screening Dental Screen Date: 10/30/[address] [facility] [place] 2 HPI0 Details Patient is a 33-year-old male here today for hospital discharge follow- up. Recently was seen [facility] for an acute abscess over his buttocks. He underwent an incision and drainage and was followed by the general surgeon team. She had clinically improved with antibiotics as well. Has been doing his own home wound care on the 2 open areas on his buttocks. They show me pictures on there cell phone today and it appears be healing well without any surrounding erythema. [facility] Medical History (Updated 03/12/24 @ 00:03 by Bj Spears) Screening for diabetes mellitus (DM) Obesity Schizophrenia CARIN (generalized anxiety disorder) Tobacco dependence Family History Mother Hypothyroidism Maternal Grandfather Colon cancer Social History Household Members: Family Housing: House Do you presently have visiting nurse or other home services: No Alcohol intake: never Patient Tobacco Use Status: Current everyday Tobacco user Tobacco use type: Cigarette Cigarettes Per Day: 8 e-Cigarette/Vaping Use: Never Used service: No Current occupational status: disabled Cognitive needs: No Hearing needs: No Vision needs: No Questionnaire Thrive Questionnaire Date Thrive assessed: 03/01/24 CARIN-7 AMB Questionnaire CARIN-7 Date CARIN - 7 assessed: 10/30/23 Source: Developed by Drs. Robbie L. AndreDawn balbuena, Isak Qiu and colleagues, with an educational vaughn from [employer]. Review of Systems Const Denies headache(s) Eyes Denies loss of vision ENT Denies vertigo, Denies dizziness, Denies headache(s) and Denies sore throat Card Denies chest pain, Denies leg edema and Denies lightheadedness Resp Denies cough, Denies hemoptysis and Denies wheezing GI Denies abdominal pain, Denies melena, Denies constipation, Denies diarrhea and Denies vomiting Denies dysuria, Denies urinary frequency and Denies urinary urgency Musc Denies arthralgias, Denies joint swelling, Denies numbness and Denies tingling Neuro Denies Abnormal speech present, Denies behavioral changes, Denies vertigo, Denies dizziness, Denies headache(s), Denies loss of vision, Denies memory loss, Denies numbness and Denies tingling Psych Denies anxiety, Denies behavioral changes, Denies depression, Denies memory loss and Denies panic attacks Casey/Lymph Denies easy bleeding and Denies easy bruising Aller/Immun Denies wheezing Physical exam (Primary Care) Vital Signs: Last Vital Signs Pulse 122 H 03/11/24 13:11 BP 114/68 03/11/24 13:11 Pulse Ox 98 03/11/24 13:11 Oxygen Delivery Method Room Air 03/11/24 13:11 BMI result Body Mass Index 48.9 Tobacco/Smoking Status: Tobacco use Status Tobacco use date assessed 10/30/23 03/11/24 13:05 Patient Tobacco Use Status Current everyday Tobacco 03/11/24 13:05 Tobacco use type Cigarette 03/11/24 13:05 e-Cigarette/Vaping Use Never Used 03/11/24 13:05 Thrive Assessment: Date of Thrive Assessment Date Thrive assessed 03/01/24 03/11/24 13:05 Const General: healthy appearing, no acute distress, alert and awake Nutritional Appearance: well nourished Orientation/consciousness: oriented to person, oriented to place and oriented to time HENMT Ears: TM's normal bilaterally General nose exam: Normal nasal mucous membranes and turbinates present Eyes Conjunctivae: conjunctivae normal Sclerae: sclerae normal Pupils: Equal, round and reactive pupils present Neck Neck: Yes no lymphadenopathy and Yes no JVD Thyroid: Thyroid normal Carotids: no bruits Resp Effort & Inspection: normal respiratory effort and not tachypneic Auscultation: no crackles, no rales, no rhonchi and no wheezes Cardio Rate: regular rate Rhythm: regular rhythm Heart sounds: no murmurs and normal S1 and S2 GI Palpation (GI): Soft to palpation, nontender, no hepatomegaly and no splenomegaly Auscultation: normal bowel sounds Back/Spine/Pelvis Back/spine/pelvis image: 2 1. TO OPEN AREAS OVER THE LEFT BUTTOCKS REGION Skin General skin exam: no rashes or lesions noted and dry skin Neuro General: oriented to person, oriented to place and oriented to time Cranial nerves: Yes Equal, round and reactive pupils present Speech: No Abnormal speech present Gait exam (Neuro): Normal gait present Motor exam (neuro): no tremor noted Extrem Right upper extremity: full ROM Left upper extremity: full ROM Right lower extremity: full ROM; no edema Left lower extremity: full ROM; no edema Psych Mental Status: mental status grossly normal Speech and movement: Normal speech and movement present Affect: normal affect Attitude: cooperative Thought process: Normal thought process present Office Procedures Flu Questionnaire Does the patient have a severe egg allergy?: No Does the patient have severe life threatening allergies?: No Does the patient have a fever or illness today?: No Has the patient ever had Guillain-[place] Syndrome?: No Has the patient ever had any past reaction to a flu shot?: No Immunizations Fluarix Triv [id number] (PF) 45 mcg (15 mcg x 3)/0.5 mL IM syringe Performing Provider: Handy Foy PA-C [facility] [facility] Administered by: DA Munoz on 03/11/24 13:10 2 Dose Route Admin Location Dispensed Lot Number Expiration Date NDC Wrecking Mechanic 0.5 mL IM Right Deltoid 0.5 mL [id number] 09/29/24 [id number] Pix[employer] 2 VIS Given Date VIS Provided VIS Publication Date 03/11/24 Single Vaccine 20 Eligibility Eligibility Date Funding Source Not [facility] Eligible 03/11/24 Private Coding Level of Care Code TCM Mod MDM <= 7 Days Diagnoses Hospital discharge follow-up Z09 Abscess of skin or subcutaneous tissue L02.31 Site of cutaneous abscess: buttock Class 3 obesity E66.813 Screening for diabetes mellitus (DM) Z13.1 Assessment & Plan Assessment & Plan (1) Hospital discharge follow-up: Code(s): Z09 - Encounter for follow-up examination after completed treatment for conditions other than malignant neoplasm Category: Medical Plan: PER HPI (2) Abscess of skin or subcutaneous tissue: Code(s): L02.91 - Cutaneous abscess, unspecified Category: Medical Qualifiers: Site of cutaneous abscess: buttock Qualified Code(s): L02.31 - Cutaneous abscess of buttock Plan: PATIENT UNDERWENT INCISION AND DRAINAGE OF 2 LARGE ABSCESSES OVER HIS BUTTOCKS. HE WAS TREATED WITH ANTIBIOTICS AND PAIN MEDICATION. HE HAS FINISHED ORAL ANTIBIOTIC AND CLINICALLY SEEMS MUCH IMPROVED. DOES HAVE UPCOMING APPOINTMENT FOR RE-EVALUATION BY GENERAL SURGEON THIS WEEK. (3) Class 3 obesity: Code(s): E66.813 - Obesity, class 3 Category: Medical Plan: Patient does understand his BMI is well over 40 and will work on being more physically active and adapting to better eating habits to reduce his weight (4) Screening for diabetes mellitus (DM): Code(s): Z13.1 - Encounter for screening for diabetes mellitus Category: Medical Plan: Will screen for type 2 diabetes. Will most recent random sugar acceptable when in hospital. Orders: Orders 2 Influenza [id number] Immunization 03/11/24 Z23 - Encounter for immunization Complete Blood Count no Diff 03/11/24 L02.31 - Cutaneous abscess of buttock Comprehensive [place]. Panel Fast 03/11/24 Z13.1 - Encounter for screening for diabetes mellitus
[2024-03-11 13:11] VITALS: BP 114/68; PULSE 122; O2SAT 98; BMI 48.9
== END 2024-03-11 13:48 | disposition home or self-care (01) ==
PROVIDERS: PCP Physician Assistant; Visit Provider Physician Assistant
DX: Z23 Encounter for immunization (principal)

== ENCOUNTER → 2024-03-11 12:53 | Outpatient (BNVA) | payer OTHER, SELFPAY | PROVIDERS: PCP Physician Assistant; Visit Provider Physician Assistant | DX: Z09 Encounter for follow-up examination after completed treatment for conditions other than malignant neoplasm (principal); Z23 Encounter for immunization; L02.31 Cutaneous abscess of buttock; E66.813 Obesity, class 3; Z68.42 Body mass index [BMI] 45.0-49.9, adult; Z71.3 Dietary counseling and surveillance | CPT/HCPCS: 90471; 90656; 99495 ==

== ENCOUNTER 2024-03-13 15:00 | Outpatient (AMB) | payer OTHER, SELFPAY ==
--- NOTE | 2024-03-13 15:09 | A.OFFVIS_ITS ---
Vital Signs 03/13/24 15:17 Height 5 ft 9 in Weight 341 lb BMI 50.4 BP 139/65 Blood Pressure Location Rt brachial Position Sitting Pulse 104 H Intake Visit Reasons: I & D right buttock abscess Surgeon--[facility] Intake Note: Patient here to follow up I&D on Rt buttock with Dr. Rawls. Patient c/o: reports improvement. Denies bleeding, pain. Finished Amox course. [employer] Required: No Accompanied by: mother Yulia Allergies No Known Allergies [No Known Allergies*] Allergy (Verified 03/13/24 15:15) Medication List - Last Reconciled 03/13/24 by Isac Moss MD amoxicillin-pot clavulanate 875-125 mg 1 tab PO BID benztropine 1 mg PO BID oxycodone 5 mg PO Q4H PRN risperidone 2 mg PO BID HPI HPI I & D right buttock abscess Surgeon--[facility]: Details: He had undergone I and D of a right buttock abscess with Dr. Rawls last 03/01/2024. He tolerated procedure well. He currently denies significant complaints. He says he feels much better and is able to sit down comfortably now. [facility] Medical History (Updated 03/13/24 @ 15:49 by Isac Moss MD) Abscess of buttock, right Screening for diabetes mellitus (DM) Obesity Schizophrenia CARIN (generalized anxiety disorder) Tobacco dependence Family History Mother Hypothyroidism Maternal Grandfather Colon cancer Social History Household Members: Family Housing: House Do you presently have visiting nurse or other home services: No Alcohol intake: never Patient Tobacco Use Status: Current everyday Tobacco user Tobacco use type: Cigarette Cigarettes Per Day: 8 e-Cigarette/Vaping Use: Never Used service: No Current occupational status: disabled Cognitive needs: No Hearing needs: No Vision needs: No Review of Systems Const Denies chills and Denies fever(s) Physical Exam Vital Signs: Last Vital Signs Pulse 104 H 03/13/24 15:17 BP 139/65 03/13/24 15:17 BMI result Body Mass Index 50.4 Const Other: Morbidly obese General: comfortable and no acute distress Cardio Rate: regular rate GI Palpation (GI): Soft to palpation Back/Spine/Pelvis Other: Examination of the right buttock chose the I&D site to be dry, previous open wound is much smaller in this area, minimal residual induration, no cellulitis, no discharge Assessment & Plan Assessment & Plan (1) Abscess of buttock, right: Code(s): L02.31 - Cutaneous abscess of buttock Category: Medical Plan: Status post I&D last March 01. He is doing very well. The open wound on the right buttock is much smaller and there is minimal residual induration I have advised his mother to continue doing good wound care with dry dressings. He can otherwise follow up on a p.r.n. basis. Coding Level of Care Code Est Pt Level 2 (87936) Diagnoses Abscess of buttock, right L02.31
[2024-03-13 15:17] VITALS: BP 139/65; PULSE 104; BMI 50.4
== END 2024-03-13 15:40 | disposition home or self-care (01) ==
PROVIDERS: PCP Physician Assistant; Visit Provider Surgery
DX: L02.31 Cutaneous abscess of buttock (principal)
CPT/HCPCS: 99212

== ENCOUNTER → 2024-03-13 15:00 | Outpatient (BNVA) | payer OTHER, SELFPAY | PROVIDERS: PCP Physician Assistant; Visit Provider Surgery | DX: Z09 Encounter for follow-up examination after completed treatment for conditions other than malignant neoplasm (principal); Z98.890 Other specified postprocedural states; Z87.2 Personal history of diseases of the skin and subcutaneous tissue | CPT/HCPCS: 99212 ==